=== PATIENT | female | born 1960 | race Caucasian/White ===

== ENCOUNTER 2018-08-11 07:20 | Day surgery (SDC) | payer OTHER ==
[2018-08-10 12:33] VITALS: BMI 23.0
[2018-08-11 17:34] VITALS: BP 106/78; PULSE 58; TEMP 98
--- NOTE | 2018-08-20 16:13 | PATH ---
Surgical Pathology Report Patient Name: ANJANA AHUJA [facility]. Rec. #: [id number] /Age/Gender: 1960 (Age: 58) / F Account: [id number] Location: RADIOLOGY INTER Taken: 08/11/2018 Received: 08/11/2018 Reported: 08/20/2018 Physicians: Alpesh Matthew M.D. Sam Rodriguez M.D. Specimen(s) Received LIVER BIOPSY Clinical History 58-year-old female with bipolar disorder and abnormal LFTs Final Diagnosis LIVER, CORE BIOPSY: DIFFUSE GRANULOMATOUS INFLAMMATION WITH FEATURES OF BILE DUCT OBSTRUCTION, CONSISTENT WITH SILICONE GRANULOMATOSIS, SEE COMMENT. TRICHROME STAIN SHOWS PERIPORTAL FIBROSIS WITH FEW FIBROUS SEPTA AND FIBROSIS AROUND LOBULAR GRANULOMAS. RETICULIN STAIN SHOWS AN INTACT SINUSOIDAL ARCHITECTURE. IRON STAIN SHOWS FOCAL MILD HEPATOCELLULAR SIDEROSIS WITH KUPFFER CELL SIDEROSIS, SUGGESTIVE OF SECONDARY IRON OVERLOAD. PAS STAIN IS NON-CONTRIBUTORY. NEGATIVE FOR MALIGNANCY. Comment: The biopsy shows numerous foreign body giant cell type granulomas with clear vacuoles of varying sizes. No polarizable foreign material is identified. The granulomas are present in the lobules and portal tracts. The portal tracts show features of bile duct obstruction including edema, periportal ductular reaction,and associated neutrophils. The patient has a history of ruptured breast implant. Overall, the histologic findings are consistent with a hepatic involvement by silicone granulomas. Note: The above diagnosis reflects Dr. Milvia Granger's opinions, from Department of Pathology, [facility], [place] [address]. Electronically Signed Franck Anaya M.D. Gross Description Received in formalin labeled "liver biopsy," are 3 delgado, cylindrical portions of soft tissue ranging from 0.4-1.6 cm in length and averaging 0.1 cm in diameter. The specimens are submitted in toto in one cassette. DL/08/11/2018 saudi08/11/2018
== END 2018-08-11 14:30 | disposition home or self-care (01) ==
LOC: JRADIR 07:20
PROVIDERS: ATTEND Internal Medicine Gastroenterology
PROC: 0FB13ZX Excision of Right Lobe Liver, Percutaneous Approach, Diagnostic (ICD-10-PCS; principal; 2018-08-11)
DX: R94.5 Abnormal results of liver function studies (principal)
CPT/HCPCS: 76705-TC; 76942-TC; 87899; 88305-TC; 88313-TC